=== PATIENT | male | born 1955 | race Caucasian/White ===

== ENCOUNTER 2023-01-29 10:54 | Emergency (ER) | payer MEDICAID ==
[~2023-01-29] VITALS: Ht 175.3 cm; Wt 70.0 kg
[2023-01-29] MEDS ORDERED: ONDANSETRON HCL 4MG/2ML INJ IV STA (11:32)
[2023-01-29] MEDS ORDERED: ACETAMINOPHEN 325MG TABLET PO STA (11:32)
[2023-01-29] MEDS ORDERED: SODIUM CHLORIDE 0.9% 1,000 ML IV ONE (11:45)
[2023-01-29 11:52] VITALS: BP 156/70
[2023-01-29 12:08] LABS: PROTHROMBIN TIME 11.2 sec (9.6-11.0)
[2023-01-29 12:09] LABS: CHLORIDE 93 mEq/L (98-107)
[2023-01-29 12:17] LABS: ETHANOL BLOOD < 10 mg/dL
[2023-01-29 12:58] LABS: HEMATOCRIT. 38.5 % (42.0-52.0); HEMOGLOBIN. 12.9 g/dL (14.0-18.0); MEAN CORPUSCULAR VOLUME 86.4 fL (80.0-94.0); MEAN PLATELET VOLUME 8.6 fl (7.4-10.4); PLATELET 237 x1000/uL (130-400); RED BLOOD CELL COUNT 4.46 mill/uL (4.7-6.1)
[2023-01-29] MEDS ORDERED: POTASSIUM CHLORIDE 20MEQ TABLET SR PO ONE (13:00)
[2023-01-29 14:00] LABS: PLATELET ESTIMATE NORMAL
[2023-01-29] MEDS ORDERED: METOCLOPRAMIDE HCL 10MG/2ML VIAL IV ONE (14:00)
[2023-01-29] MEDS ORDERED: ONDA4TAB11 PO (14:55)
== END 2023-01-29 16:54 | disposition home or self-care (01) ==
LOC: ER 10:54
DX: B34.9 Viral infection, unspecified (principal); A08.4 Viral intestinal infection, unspecified; E87.6 Hypokalemia; I10 Essential (primary) hypertension; E11.9 Type 2 diabetes mellitus without complications; R51.9 Headache, unspecified; E78.00 Pure hypercholesterolemia, unspecified; Z88.0 Allergy status to penicillin
CPT/HCPCS: 36415; 70450; 71045; 80053; 80320; 84484; 85025; 85610; 93005; 96361; 96374; 96375; 99285; J2405; J2765; J7030; Z7610; G0480

== ENCOUNTER 2023-02-11 11:11 | Emergency (ER) | payer MEDICAID ==
[~2023-02-11] VITALS: Ht 167.6 cm; Wt 58.0 kg
[~2023-02-11 11:11] MED LIST: ONDA4TAB11 PO
[2023-02-11] MEDS ORDERED: ACETAMINOPHEN 325MG TABLET PO ONE (14:45)
[2023-02-11] MEDS ORDERED: ACET-2708 MT (16:10)
[2023-02-11 18:05] VITALS: BP 133/78
== END 2023-02-11 18:05 | disposition home or self-care (01) ==
LOC: ER 11:27
DX: M79.661 Pain in right lower leg (principal); I10 Essential (primary) hypertension; E78.00 Pure hypercholesterolemia, unspecified; E11.9 Type 2 diabetes mellitus without complications; Z88.0 Allergy status to penicillin; Z00.00 Encounter for general adult medical examination without abnormal findings
CPT/HCPCS: 73590; 93971; 99284; Z7610

== ENCOUNTER 2023-02-12 12:41 | Inpatient (IN) | payer MEDICAID ==
[~2023-02-12] VITALS: Ht 175.3 cm; Wt 68.0 kg
[2023-02-12] VITALS (7 sets, daily range): BP systolic 106–147; BP diastolic 51–68
[~2023-02-12 12:41] MED LIST changes: +ACET-2708 MT
[2023-02-12] MEDS ORDERED: SODIUM CHLORIDE 0.9% 1,000 ML IV ONE (14:00)
[2023-02-12 14:32] LABS: BG BASE EXCESS -8.7 mmol/L (-2.0-2.0); BG DEOXYHEMOGLOBIN 4.9 % (0.0-5.0); BG FRACTION INSPIRED OXYGEN 21; BG HCO3 ACT 13.9 mmol/L (22.0-26.0); BG METHEMOGLOBIN 0.1 % (0.0-1.5); BG OXYGEN SATURATION 95.1 % (92.0-98.5); BG PCO2 21.9 mmHg (35.0-45.0); BG PH 7.421 (7.350-7.450); BG PO2 81.3 mmHg (75.0-100.0); BG SAMPLE SITE LEFT BRACHIAL; BG TOTAL HEMOGLOBIN 11.3 g/dL (12.0-18.0); BG VENT MODE ROOM AIR
[2023-02-12 14:46] LABS: HEMATOCRIT. 32.9 % (42.0-52.0); HEMOGLOBIN. 10.9 g/dL (14.0-18.0); MEAN CORPUSCULAR HEMOGLOBIN 29.5 pg (28.0-32.0); MEAN PLATELET VOLUME 8.9 fl (7.4-10.4); PLATELET 391 x1000/uL (130-400); RED CELL DISTRIBUTION WIDTH 14.6 % (11.6-14.6)
[2023-02-12 14:56] LABS: CHLORIDE 84 mEq/L (98-107)
[2023-02-12 15:06] LABS: ETHANOL BLOOD < 10 mg/dL
[2023-02-12 15:39] LABS: PLATELET ESTIMATE NORMAL
[2023-02-12] MEDS ORDERED: LEVOFLOXACIN 750MG PREMIX 150 ML IV ONE (15:45)
[2023-02-12] MEDS ORDERED: SODIUM CHLORIDE 0.9% 1000ML BAG (SEPSIS BOLUS) IV ONE (15:45)
[2023-02-12] MEDS ORDERED: KCL 20MEQ/100ML PREMIX 100 ML IV ONE (16:15)
[2023-02-12] MEDS ORDERED: POTASSIUM CHLORIDE 20MEQ TABLET SR PO ONE ×2 (16:15→19:00)
[2023-02-12 18:50] LABS: CHLORIDE 94 mEq/L (98-107)
[2023-02-12 18:57] LABS: PHOSPHORUS 3.7 mg/dL (2.5-4.9)
[2023-02-12] MEDS ORDERED: INSULIN REGULAR (DRIP) 100 UNITS in SODIUM CHLORIDE 0.9% 100 ML IV ONE (19:00)
[2023-02-12] MEDS ORDERED: INSULIN REGULAR 100U/100ML PMX 100 ML IV ONE (19:15)
[2023-02-12] MEDS ORDERED: GUAIFENESIN 200MG/10ML SUGAR FREE UDC PO PRN (20:30)
[2023-02-12] MEDS ORDERED: IPRATROPIUM/ALBUTEROL 0.5-3(2.5)MG/3ML NEB HHN PRN (20:30)
[2023-02-12] MEDS ORDERED: ACETAMINOPHEN 325MG TABLET PO PRN ×2 (20:30)
[2023-02-12] MEDS ORDERED: ONDANSETRON HCL 4MG/2ML INJ IV PRN (20:30)
[2023-02-12] MEDS ORDERED: DOCUSATE SODIUM 100MG CAPSULE PO PRN (20:30)
[2023-02-12] MEDS ORDERED: CLONIDINE 0.1MG TABLET PO PRN (20:30)
[2023-02-12] MEDS ORDERED: MAGNESIUM/ALUMINUM HYDROXIDE/SIMETHICONE 30ML UDC PO PRN (20:30)
[2023-02-12 20:43] LABS: CLARITY URINE CLEAR (CLEAR); COLOR URINE YELLOW (YELLOW); KETONES URINE 4+ (NEGATIVE); LEUKOCYTE ESTERASE URINE NEGATIVE (NEGATIVE); NITRITE URINE NEGATIVE (NEGATIVE); OCCULT BLOOD URINE 2+ (NEGATIVE); PROTEIN URINE 1+ (NEGATIVE); SPECIFIC GRAVITY URINE 1.024 (1.005-1.030); UROBILINOGEN URINE 0.2 E.U./dL (0.2-1.0)
[2023-02-12] MEDS ORDERED: DEXTROSE 50% WATER 50ML SYRINGE IV PRN (20:45)
[2023-02-12] MEDS ORDERED: INSULIN REGULAR (HUMULIN R) 300UNITS/3ML VIAL IV PRN (20:45)
[2023-02-12] MEDS ORDERED: SODIUM BICARBONATE 8.4% 1 MEQ/ML 50ML SYR IV NR (20:45)
[2023-02-12] MEDS ORDERED: MAGNESIUM 1 G PREMIX 100 ML IV PRN (20:45)
[2023-02-12] MEDS ORDERED: DEXT 5%/0.45% NACL 1000ML 1,000 ML IV SCH (20:45)
[2023-02-12 20:59] LABS: *AMPHETAMINES SCREEN URINE NEGATIVE (NEGATIVE); *BARBITURATES SCREEN URINE NEGATIVE (NEGATIVE); *BENZODIAZEPINES SCREEN URINE NEGATIVE (NEGATIVE); *COCAINE SCREEN URINE NEGATIVE (NEGATIVE); CANNABINOID URINE SCREEN NEGATIVE (NEGATIVE); METHADONE URINE SCREEN NEGATIVE (NEGATIVE); OPIATES URINE SCREEN NEGATIVE (NEGATIVE); PHENCYCLIDINE URINE SCREEN NEGATIVE (NEGATIVE)
[2023-02-12] MEDS: BLOOD SUGAR DIAGNOSTIC STRIP TEST SCH ×3 (21:00→23:14)
[2023-02-12] MEDS ORDERED: INSULIN REGULAR 100U/100ML PMX 100 ML IV PRN (21:00)
[2023-02-12] MEDS ORDERED: AZTREONAM 1 G in DEXTROSE 5% WATER 50 ML IV SCH (21:00)
[2023-02-12] MEDS ORDERED: CEFTRIAXONE 1GM PREMIX 50 ML IV SCH (22:00)
[2023-02-12] MEDS: ENOXAPARIN 40MG/0.4ML SYR SUBCUT SCH (23:18)
[2023-02-12] MEDS: SODIUM CHLORIDE 0.45% 1,000 ML IV SCH (23:20)
[2023-02-12 23:38] LABS: CHLORIDE 99 mEq/L (98-107)
[2023-02-12 23:45] LABS: PHOSPHORUS 2.1 mg/dL (2.5-4.9)
[2023-02-13] VITALS (28 sets, daily range): BP systolic 120–182; BP diastolic 48–113
[2023-02-13] MEDS ORDERED: KCL 20MEQ/100ML PREMIX 100 ML IV NR
[2023-02-13] MEDS: BLOOD SUGAR DIAGNOSTIC STRIP TEST SCH ×14 (00:14→23:30)
[2023-02-13] MEDS: SODIUM CHLORIDE 0.45% 1,000 ML IV SCH ×2 (00:45→05:15)
[2023-02-13 01:55] LABS: TOTAL IRON BINDING CAPACITY 174 ug/dL (250-450)
[2023-02-13 02:16] LABS: FOLIC ACID (FOLATE) SERUM 7.4 ng/mL (>5.38)
[2023-02-13 05:16] LABS: HEMATOCRIT. 33.1 % (42.0-52.0); HEMOGLOBIN. 11.4 g/dL (14.0-18.0); MEAN CORPUSCULAR HEMOGLOBIN 29.8 pg (28.0-32.0); MEAN CORPUSCULAR VOLUME 86.9 fL (80.0-94.0); MEAN PLATELET VOLUME 8.6 fl (7.4-10.4); PLATELET 345 x1000/uL (130-400); RED BLOOD CELL COUNT 3.81 mill/uL (4.7-6.1); RED CELL DISTRIBUTION WIDTH 14.9 % (11.6-14.6)
[2023-02-13 05:28] LABS: CHLORIDE 101 mEq/L (98-107)
[2023-02-13 05:43] LABS: HDL CHOLESTEROL 14 mg/dL (40-59); LDL CHOLESTEROL 50 mg/dL (5-100); T4 FREE 1.15 ng/dL (0.76-1.46)
[2023-02-13 06:46] LABS: PLATELET ESTIMATE NORMAL
[2023-02-13] MEDS ORDERED: SODIUM CHLORIDE 0.9% 1,000 ML IV SCH (08:00)
[2023-02-13] MEDS ORDERED: DEXTROSE 50% WATER 50ML SYRINGE IV PRN (08:00)
[2023-02-13] MEDS: INSULIN LISPRO 100 UNITS/ML SUBCUT SCH ×5 (08:20→21:00)
[2023-02-13] MEDS: PANTOPRAZOLE 40MG DR TABLET PO SCH ×2 (09:12→21:29)
[2023-02-13 09:55] LABS: PHOSPHORUS 1.3 mg/dL (2.5-4.9)
[2023-02-13] MEDS ORDERED: PERMETHRIN 5% CREAM 60GM TOP SCH (10:00)
[2023-02-13] MEDS ORDERED: POTASSIUM PHOS,M-BASIC-D-BASIC 10 MMOL in DEXT 5% WATER 250 ML IV SCH (10:00)
[2023-02-13] MEDS: INSULIN GLARGINE 100 UNITS/ML SUBCUT SCH (10:45)
[2023-02-13 15:37] LABS: CHLORIDE 99 mEq/L (98-107)
[2023-02-13 15:40] LABS: PHOSPHORUS 2.2 mg/dL (2.5-4.9)
[2023-02-13] MEDS: BACITRACIN 15GM TUBE TOP SCH (17:04)
[2023-02-13] MEDS ORDERED: ALBUTEROL (0.083%) 2.5MG/3ML NEB HHN PRN (17:45)
[2023-02-13] MEDS ORDERED: IPRATROPIUM BROMIDE (0.02%) 0.5MG/2.5ML NEB HHN PRN (17:45)
[2023-02-13] MEDS ORDERED: POTASSIUM PHOS,M-BASIC-D-BASIC 10 MMOL in DEXT 5% WATER 246.6667 ML IV NR (18:30)
[2023-02-13] MEDS ORDERED: INSULIN LISPRO 100 UNITS/ML SUBCUT NR (18:45)
[2023-02-13] MEDS ORDERED: TRAMADOL 50MG TABLET PO NR (21:00)
[2023-02-13] MEDS: ENOXAPARIN 40MG/0.4ML SYR SUBCUT SCH (21:29)
[2023-02-13] MEDS ORDERED: INSULIN GLARGINE 100 UNITS/ML SUBCUT SCH (22:00)
[2023-02-14] VITALS: BP 154/76
[2023-02-14 08:00] VITALS: BP 152/71
[2023-02-14] MEDS ORDERED: AMLODIPINE 5MG TABLET PO SCH (08:00)
[2023-02-14] MEDS: BLOOD SUGAR DIAGNOSTIC STRIP TEST SCH ×4 (08:00→21:00)
[2023-02-14] MEDS: PANTOPRAZOLE 40MG DR TABLET PO SCH (08:24)
[2023-02-14] MEDS: INSULIN GLARGINE 100 UNITS/ML SUBCUT SCH ×2 (08:48→22:44)
[2023-02-14] MEDS: INSULIN LISPRO 100 UNITS/ML SUBCUT SCH ×7 (08:49→22:44)
[2023-02-14] MEDS: BACITRACIN 15GM TUBE TOP SCH (08:51)
[2023-02-14 11:07] LABS: HEMATOCRIT. 29.8 % (42.0-52.0); HEMOGLOBIN. 10.1 g/dL (14.0-18.0); MEAN CORPUSCULAR HEMOGLOBIN 29.4 pg (28.0-32.0); MEAN CORPUSCULAR VOLUME 86.9 fL (80.0-94.0); MEAN PLATELET VOLUME 8.4 fl (7.4-10.4); PLATELET 254 x1000/uL (130-400); RED BLOOD CELL COUNT 3.42 mill/uL (4.7-6.1); RED CELL DISTRIBUTION WIDTH 14.6 % (11.6-14.6)
[2023-02-14] MEDS: CEFTRIAXONE 1GM PREMIX 50 ML IV SCH (11:08)
[2023-02-14 11:17] LABS: CHLORIDE 96 mEq/L (98-107)
[2023-02-14 11:23] LABS: PHOSPHORUS 1.6 mg/dL (2.5-4.9)
[2023-02-14] MEDS ORDERED: POTASSIUM CHLORIDE 20MEQ TABLET SR PO NR (11:30)
[2023-02-14 12:00] VITALS: BP 155/60
[2023-02-14 12:59] LABS: PLATELET ESTIMATE NORMAL
[2023-02-14 16:00] VITALS: BP 164/75
[2023-02-14 20:00] VITALS: BP 160/77
[2023-02-14] MEDS ORDERED: POTASSIUM PHOS,M-BASIC-D-BASIC 15 MMOL in DEXT 5% WATER 245 ML IV NR (20:00)
[2023-02-14] MEDS: FAMOTIDINE 20MG TABLET PO SCH (21:00)
[2023-02-14] MEDS: ENOXAPARIN 40MG/0.4ML SYR SUBCUT SCH (22:40)
[2023-02-15] VITALS: BP 151/72
[2023-02-15 04:00] VITALS: BP 160/73
[2023-02-15 06:48] LABS: BASOPHILS % 0.1 % (0.0-2.0); EOSINOPHILS % 0.1 % (0.0-5.0); HEMATOCRIT. 32.4 % (42.0-52.0); HEMOGLOBIN. 11.2 g/dL (14.0-18.0); LYMPHOCYTES % 7.7 % (20.0-50.0); MEAN CORPUSCULAR HEMOGLOBIN 29.8 pg (28.0-32.0); MEAN CORPUSCULAR VOLUME 86.1 fL (80.0-94.0); MEAN PLATELET VOLUME 8.9 fl (7.4-10.4); MONOCYTES % 6.5 % (2.0-8.0); NEUTROPHILS % 85.6 % (40.0-76.0); PLATELET 262 x1000/uL (130-400); RED BLOOD CELL COUNT 3.76 mill/uL (4.7-6.1); RED CELL DISTRIBUTION WIDTH 14.8 % (11.6-14.6)
[2023-02-15 07:12] LABS: CHLORIDE 94 mEq/L (98-107)
[2023-02-15 08:00] VITALS: BP 147/72
[2023-02-15] MEDS ORDERED: POTASSIUM CHLORIDE 20MEQ TABLET SR PO NR ×2 (08:00→17:00)
[2023-02-15] MEDS: BLOOD SUGAR DIAGNOSTIC STRIP TEST SCH ×4 (08:08→21:00)
[2023-02-15] MEDS: INSULIN LISPRO 100 UNITS/ML SUBCUT SCH ×7 (08:45→21:00)
[2023-02-15] MEDS: INSULIN GLARGINE 100 UNITS/ML SUBCUT SCH ×2 (08:48→22:00)
[2023-02-15] MEDS: SODIUM HYPOCHLORITE SOLUTION (0.5%)FULL STRENGTH TOP SCH (09:54)
[2023-02-15] MEDS: AMLODIPINE 5MG TABLET PO SCH ×2 (09:57→17:55)
[2023-02-15] MEDS: FAMOTIDINE 20MG TABLET PO SCH ×2 (09:58→21:41)
[2023-02-15] MEDS: BACITRACIN 15GM TUBE TOP SCH (09:58)
[2023-02-15] MEDS: CEFTRIAXONE 1GM PREMIX 50 ML IV SCH (10:21)
[2023-02-15] MEDS ORDERED: CITALOPRAM HYDROBROMIDE 10MG TABLET PO NR (11:00)
[2023-02-15 12:00] VITALS: BP 147/70
[2023-02-15 16:00] VITALS: BP 147/74
[2023-02-15] MEDS: ENOXAPARIN 40MG/0.4ML SYR SUBCUT SCH (21:42)
[2023-02-16] MEDS: AMLODIPINE 5MG TABLET PO SCH ×2 (06:32→18:33)
[2023-02-16] MEDS: INSULIN LISPRO 100 UNITS/ML SUBCUT SCH ×6 (06:35→17:50)
[2023-02-16 08:00] VITALS: BP 139/71
[2023-02-16] MEDS: BLOOD SUGAR DIAGNOSTIC STRIP TEST SCH ×3 (08:01→18:01)
[2023-02-16] MEDS: FAMOTIDINE 20MG TABLET PO SCH (09:25)
[2023-02-16] MEDS: BACITRACIN 15GM TUBE TOP SCH (09:26)
[2023-02-16] MEDS: SODIUM HYPOCHLORITE SOLUTION (0.5%)FULL STRENGTH TOP SCH (09:26)
[2023-02-16] MEDS: INSULIN GLARGINE 100 UNITS/ML SUBCUT SCH (09:31)
[2023-02-16 12:00] VITALS: BP 150/55
[2023-02-16] MEDS: CEFTRIAXONE 1GM PREMIX 50 ML IV SCH (12:51)
[2023-02-16 14:00] VITALS: BP 144/60
[2023-02-16 20:29] VITALS: BP 144/60
== END 2023-02-16 21:05 | disposition home or self-care (01) | DRG 720 ==
LOC: ER 12:41 → EDBEDREQSVC 18:25 → EDBEDREQ 18:25 → EDBEDREQTM 18:25 → ENRESERV 19:37 → CVICU 20:56 → 6EST 02-13 17:28
PROVIDERS: ADMIT Hospitalist; ATTEND Hospitalist
DX: A41.50 Gram-negative sepsis, unspecified (principal); G93.41 Metabolic encephalopathy; E10.10 Type 1 diabetes mellitus with ketoacidosis without coma; E44.1 Mild protein-calorie malnutrition; E10.52 Type 1 diabetes mellitus with diabetic peripheral angiopathy with gangrene; R17 Unspecified jaundice; Z20.822 Contact with and (suspected) exposure to COVID-19; D63.8 Anemia in other chronic diseases classified elsewhere; E87.1 Hypo-osmolality and hyponatremia; E88.09 Other disorders of plasma-protein metabolism, not elsewhere classified; D64.89 Other specified anemias; E87.6 Hypokalemia; E05.90 Thyrotoxicosis, unspecified without thyrotoxic crisis or storm; E78.00 Pure hypercholesterolemia, unspecified; F33.1 Major depressive disorder, recurrent, moderate; E78.5 Hyperlipidemia, unspecified; D50.9 Iron deficiency anemia, unspecified; I11.0 Hypertensive heart disease with heart failure; I25.10 Atherosclerotic heart disease of native coronary artery without angina pectoris; I50.30 Unspecified diastolic (congestive) heart failure; Z78.9 Other specified health status; Z79.4 Long term (current) use of insulin; Z88.0 Allergy status to penicillin; Z89.422 Acquired absence of other left toe(s); Z91.14 Patient's other noncompliance with medication regimen; Z68.22 Body mass index [BMI] 22.0-22.9, adult
CPT/HCPCS: 36415; 36600; 71045; 75635; 80048; 80051; 80053; 80061; 80305; 80320; 81003; 82010; 82375; 82607; 82728; 82746; 82805; 82962; 83036; 83540; 83550; 83605; 83735; 83880; 83930; 84100; 84145; 84439; 84443; 84484; 85025; 87077; 87186; 87426; 93005; 93306; 93880; 93923; 93970; 97162; 99291; C9803; J0696; J1650; J1815; J1956; J3480; J3490; J7030; J7050; J7060; G0480